=== PATIENT | female | born 1950 | race Caucasian/White ===

== ENCOUNTER 2016-09-09 03:13 | Emergency (ER) | payer MEDICARE, OTHER ==
[~2016-09-09] VITALS: Ht 170.2 cm; Wt 83.9 kg
[~2016-09-09 03:13] MED LIST: AMIT25TA9 PO; ENAL5TAB PO; LEVO50TA8 PO; LORA10TA7 PO; MELO-264 PO; PRAV40TA3 PO
--- NOTE | 2016-09-09 03:25 | NUR ---
To bed 9 a 65 yo female bibself with c/o right ankle/foot pain, and left lower leg/foot pain at 9/10, worse with movement s/p GLF today. Per patient, she fell on her knees. Noted declan lower legs and feet without redness, no swelling, +CMS. Comfort measures initiated. Awaiting for er md nuñez.
--- NOTE | 2016-09-09 03:29 | NUR ---
xr at bedside.
--- NOTE | 2016-09-09 05:03 | NUR ---
dPatient discharged to home in stable condition. Written and verbal after care instructions given. Patient verbalizes understanding of instruction. Placed jagruti bandage declan ankle/foot. Patient is ambulatory with a steady gait
[2016-09-09 05:05] VITALS: BP 148/88
== END 2016-09-09 05:06 | disposition home or self-care (01) ==
LOC: ER 03:13
DX: S93.401A Sprain of unspecified ligament of right ankle, initial encounter (principal); W01.0XXA Fall on same level from slipping, tripping and stumbling without subsequent striking against object, initial encounter; Y93.89 Activity, other specified; Y92.89 Other specified places as the place of occurrence of the external cause; Y99.8 Other external cause status; I10 Essential (primary) hypertension; K21.9 Gastro-esophageal reflux disease without esophagitis; E03.9 Hypothyroidism, unspecified; Z88.6 Allergy status to analgesic agent; Z88.1 Allergy status to other antibiotic agents; Z88.0 Allergy status to penicillin; Z88.7 Allergy status to serum and vaccine
CPT/HCPCS: 73610-TC; 73630-TC; A4606; Z7610

== ENCOUNTER 2017-11-24 11:10 | Emergency (ER) | payer MEDICARE, OTHER ==
[~2017-11-24] VITALS: Ht 167.6 cm; Wt 77.1 kg
[~2017-11-24 11:10] MED LIST changes: +MELO-107 PO; -MELO-264 PO
--- NOTE | 2017-11-24 11:16 | NUR ---
[id number] c/o bilateral knee and leg pain tripped and fell at [place]. denies KO, denies neck and back pain. will cont to monitor
[2017-11-24 12:07] VITALS: BP 138/70
--- NOTE | 2017-11-24 12:09 | NUR ---
Patient discharged to home in stable condition. Written and verbal after care instructions given. Patient verbalizes understanding of instruction.
== END 2017-11-24 12:14 | disposition home or self-care (01) ==
LOC: ER 11:11
DX: S80.212A Abrasion, left knee, initial encounter (principal); S80.211A Abrasion, right knee, initial encounter; I10 Essential (primary) hypertension; K21.9 Gastro-esophageal reflux disease without esophagitis; E03.9 Hypothyroidism, unspecified; E78.5 Hyperlipidemia, unspecified; Z88.0 Allergy status to penicillin; Z88.8 Allergy status to other drugs, medicaments and biological substances; Z88.6 Allergy status to analgesic agent; Z91.011 Allergy to milk products; W01.0XXA Fall on same level from slipping, tripping and stumbling without subsequent striking against object, initial encounter; Y93.89 Activity, other specified; Y92.481 Parking lot as the place of occurrence of the external cause; Y99.8 Other external cause status
CPT/HCPCS: 99283; A4606; Z7610

== ENCOUNTER 2018-10-24 19:21 | Emergency (ER) | payer MEDICARE, OTHER ==
[~2018-10-24] VITALS: Ht 172.7 cm; Wt 83.0 kg
--- NOTE | 2018-10-24 20:34 | NUR ---
RADIOLOGY AT BEDSIDE FOR XRAY
[2018-10-24 20:47] VITALS: BP 125/74
--- NOTE | 2018-10-24 21:59 | NUR ---
PT LEFT BEFORE SIGNING AFTERCARE INSTRUCTIONS.
== END 2018-10-24 22:09 | disposition home or self-care (01) ==
LOC: ER 19:26
DX: S80.02XA Contusion of left knee, initial encounter (principal); I10 Essential (primary) hypertension; K21.9 Gastro-esophageal reflux disease without esophagitis; E03.9 Hypothyroidism, unspecified; E78.5 Hyperlipidemia, unspecified; Z98.890 Other specified postprocedural states; Z88.6 Allergy status to analgesic agent; Z88.7 Allergy status to serum and vaccine; Z91.011 Allergy to milk products; Z88.0 Allergy status to penicillin; Z88.1 Allergy status to other antibiotic agents; Z88.8 Allergy status to other drugs, medicaments and biological substances; W01.0XXA Fall on same level from slipping, tripping and stumbling without subsequent striking against object, initial encounter; Y93.89 Activity, other specified; Y92.89 Other specified places as the place of occurrence of the external cause; Y99.8 Other external cause status
CPT/HCPCS: 73564-TC

== ENCOUNTER 2019-07-19 13:42 | Outpatient (CLI) | payer MEDICARE, OTHER | END 2019-07-19 23:59 | disposition home or self-care (01) | LOC: CARD 13:42 | PROVIDERS: ATTEND Internal Medicine Interventional Cardiology | DX: R22.41 Localized swelling, mass and lump, right lower limb (principal); M79.604 Pain in right leg; M79.605 Pain in left leg | CPT/HCPCS: 93970-TC ==

== ENCOUNTER → 2020-05-04 | Day surgery (SDC) | payer MEDICARE, OTHER ==
[~2020-05-04] VITALS: Ht 172.7 cm; Wt 83.5 kg
[~2020-05-04] MED LIST changes: +CT SWABBABLE VALVE TRANS SET 1 EA INFUS.SET MC ONE; +ENAL-78 PO; -ENAL5TAB PO; +IOHEXOL-350 100 ML VIAL IV ONE; +IV NS 0.9% 250 ML IV ONE; +METOPROLOL TARTRATE INJ 5 MG/5 ML AMPUL ONE; +NITROGLYCERIN 0.4 MG/TAB BOTTLE ONE; +NITROGLYCERIN 0.4 MG/TAB BOTTLE SL ONE
[2020-05-04 10:02] LABS: CALCIUM, SERUM 9.6 mg/dL (8.5-10.1); CREATININE 0.8 mg/dL (0.6-1.3); POTASSIUM 4.1 mmol/L (3.5-5.1)
[2020-05-04] MEDS: METOPROLOL TARTRATE INJ 5 MG/5 ML AMPUL IVP PRN ×3 (10:35→10:45)
[2020-05-04 10:48] VITALS: BP 117/65
--- NOTE | 2020-05-04 11:07 | NUR ---
IV removed. Catheter intact and site benign. Pressure and 4x4 applied to site. No bleeding noted.Patient discharged to home in stable condition. Written and verbal after care instructions given. Patient verbalizes understanding of instruction.
== END | disposition home or self-care (01) ==
LOC: CT 09:11
PROVIDERS: ATTEND Internal Medicine Interventional Cardiology
DX: I10 Essential (primary) hypertension (principal); I25.10 Atherosclerotic heart disease of native coronary artery without angina pectoris; K44.9 Diaphragmatic hernia without obstruction or gangrene
CPT/HCPCS: 36415; 75574; 80048; J3490 ×2; J7050; Q9967

== ENCOUNTER 2022-01-25 04:55 | Emergency (ER) | payer MEDICARE, OTHER ==
[~2022-01-25] VITALS: Ht 167.6 cm; Wt 63.5 kg
[~2022-01-25 04:55] MED LIST changes: -CT SWABBABLE VALVE TRANS SET 1 EA INFUS.SET MC ONE; -IOHEXOL-350 100 ML VIAL IV ONE; -IV NS 0.9% 250 ML IV ONE; -METOPROLOL TARTRATE INJ 5 MG/5 ML AMPUL ONE; -NITROGLYCERIN 0.4 MG/TAB BOTTLE ONE; -NITROGLYCERIN 0.4 MG/TAB BOTTLE SL ONE
--- NOTE | 2022-01-25 05:01 | NUR ---
[id number] FROM HOME C/O RLQ ABDOMINAL PAIN X1DAY -N/V +DIARRHEA. PATIENT ALERT AND ORIENTED X4. AMBULATORY WITH NON LABORED BREAHTING IN BED 09 ON MONITOR AND POX, IN A GOWN AWAITING MD CHEUNG.
--- NOTE | 2022-01-25 05:02 | NUR ---
URINE COLLECTED AND SENT TO LAB
--- NOTE | 2022-01-25 05:25 | NUR ---
IV LINE ESTABLISHED, [id number]. BLOOD COLLECTED AND SENT TO LAB
--- NOTE | 2022-01-25 05:43 | NUR ---
[facility]
[2022-01-25 05:50] LABS: BASOPHILS % (AUTO) 0.6 % (0.0-2.0); EOSINOPHILS % (AUTO) 0.4 % (0.0-6.0); HEMATOCRIT 41 % (33-45); HEMOGLOBIN 13.8 g/dL (11.5-14.8); LYMPHOCYTES # (AUTO) 0.8 K/uL (0.8-4.8); LYMPHOCYTES % (AUTO) 12.8 % (20.0-44.0); MEAN CORPUSCULAR HGB CONC 34 g/dl (31.0-36.0); MEAN CORPUSCULAR VOLUME 94 fL (82-100); MONOCYTES # (AUTO) 0.4 K/uL (0.1-1.30); MONOCYTES % (AUTO) 5.4 % (2.0-12.0); NEUTROPHILS # (AUTO) 5.3 K/uL (1.8-8.9); NEUTROPHILS % (AUTO) 80.8 % (43.0-81.0); PLATELET COUNT (AUTO) 157 K/uL (150-450); RED BLOOD CELL COUNT(AUTO) 4.38 MIL/uL (4.0-5.2); WHITE BLOOD COUNT (AUTO) 6.6 K/uL (4.3-11.0)
[2022-01-25 05:57] LABS: BILIRUBIN,URINE NEGATIVE (NEGATIVE); COLOR,URINE YELLOW (YELLOW); LEUKOCYTE ESTERASE ,URINE NEGATIVE (NEGATIVE); NITRITE, URINE NEGATIVE (NEGATIVE); PH,URINE 5.5 (5.0-8.0); PROTEIN,URINE NEGATIVE (NEGATIVE); UGLUCOSE NEGATIVE (NEGATIVE); UROBILINOGEN,URINE 0.2 EU/dL (0.2)
[2022-01-25 06:09] LABS: CALCIUM, SERUM 9.5 mg/dL (8.5-10.1); CARBON DIOXIDE 28 mmol/L (21-32); CHLORIDE 101 mmol/L (98-107); CREATININE 1.3 mg/dL (0.6-1.3); GLUCOSE 199 mg/dL (74-106); POTASSIUM 4.2 mmol/L (3.5-5.1); SODIUM SERUM 138 mmol/L (136-145); UREA NITROGEN, BLOOD 29 mg/dL (7-18)
[2022-01-25 06:15] LABS: ALANINE AMINOTRANSFERASE 29 U/L (12-78); ALBUMIN 4.4 g/dL (3.4-5.0); ALKALINE PHOSPHATASE 92 U/L (46-116); ASPARTATE AMINOTRANSFERASE 23 U/L (15-37); BILIRUBIN,DIRECT 0.1 mg/dL (0.0-0.2); BILIRUBIN,TOTAL 0.4 mg/dL (0.2-1.0); LIPASE 90 U/L (73-393); TOTAL PROTEIN, SERUM 7.9 g/dL (6.4-8.2)
[2022-01-25 06:20] LABS: BACTERIA,URINE Rare /HPF (None Seen); SQUAMOUS EPITHELIAL CELL,UR Few /HPF (None Seen); WBC,URINE 0-2 /HPF (0-3)
[2022-01-25] MEDS ORDERED: TAMS-12 PO (06:26)
[2022-01-25] MEDS ORDERED: OXYC5CAP18 PO (06:26)
[2022-01-25] MEDS ORDERED: ONDA4TAB5 PO (06:27)
[2022-01-25] MEDS ORDERED: MORPHINE SULFATE INJ 2 MG/ML DISP.SYRIN ONE (06:27)
[2022-01-25] MEDS ORDERED: ONDANSETRON HCL/PF 4 MG/2 ML VIAL ONE (06:27)
[2022-01-25] MEDS ORDERED: MORPHINE SULFATE INJ 2 MG/ML DISP.SYRIN IV ONE (06:30)
[2022-01-25] MEDS ORDERED: ONDANSETRON HCL/PF - ER 4 MG/2 ML VIAL IV ONE (06:30)
[2022-01-25] MEDS ORDERED: IV NS 0.9% 1,000 ML IV ONE (06:30)
--- NOTE | 2022-01-25 07:59 | NUR ---
Patient discharged to home in stable condition. Written and verbal after care instructions given. Patient verbalizes understanding of instruction.
--- NOTE | 2022-01-25 07:59 | NUR ---
IV removed. Catheter intact and site benign. Pressure and 4x4 applied to site. No bleeding noted.
[2022-01-25 08:00] VITALS: BP 127/82
== END 2022-01-25 08:00 | disposition home or self-care (01) ==
LOC: ER 05:00
DX: N20.0 Calculus of kidney (principal); R11.10 Vomiting, unspecified; I10 Essential (primary) hypertension; K21.9 Gastro-esophageal reflux disease without esophagitis; E03.9 Hypothyroidism, unspecified; E78.5 Hyperlipidemia, unspecified; Z88.6 Allergy status to analgesic agent; Z88.0 Allergy status to penicillin; Z88.1 Allergy status to other antibiotic agents; Z91.011 Allergy to milk products; Z79.899 Other long term (current) drug therapy
CPT/HCPCS: 99284; 74176; 96374; 96361; 96375; 85025; 80048; 83690; 80076; 81001; 36415; J2405 ×2; J7030; J2270